=== PATIENT | male | born 1995 | race Two or more races ===

== ENCOUNTER 2022-05-10 18:50 | Emergency (ER) | payer SELFPAY | END 2022-05-10 20:30 | disposition home or self-care (01) | LOC: JD.ED 18:50 | DX: S93.402A Sprain of unspecified ligament of left ankle, initial encounter (principal); F17.210 Nicotine dependence, cigarettes, uncomplicated; X50.1XXA Overexertion from prolonged static or awkward postures, initial encounter | CPT/HCPCS: 73610-26-LT; 73610-LT; 99283 ==